=== PATIENT | male | born 1935 | race Caucasian/White ===

== ENCOUNTER 2017-06-20 01:16 | Emergency (ER) | payer MEDICARE, BC ==
[~2017-06-20] VITALS: Ht 172.7 cm; Wt 86.2 kg
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
--- NOTE | 2017-06-20 01:30 | NUR ---
NOSE CLIP APPLIED PER MD ORDER
[2017-06-20] MEDS ORDERED: OXYMETAZOLINE HCL NASAL SPRAY 30 ML BOTTLE NS ONE (02:30)
--- NOTE | 2017-06-20 02:33 | NUR ---
DR. MESA AT BEDSIDE FOR EVAL OF NOSEBLEED.
--- NOTE | 2017-06-20 03:41 | NUR ---
Patient discharged to home in stable condition. Written and verbal after care instructions given. Patient verbalizes understanding of instruction. ambulatory with a steady gait
[2017-06-20 03:42] VITALS: BP 135/60
== END 2017-06-20 03:42 | disposition home or self-care (01) ==
LOC: ER 01:21
DX: R04.0 Epistaxis (principal); E78.00 Pure hypercholesterolemia, unspecified; I10 Essential (primary) hypertension; Z79.82 Long term (current) use of aspirin
CPT/HCPCS: 99283; A4606; Z7610

== ENCOUNTER 2018-06-26 14:08 | Emergency (ER) | payer BC, MEDICARE ==
[~2018-06-26] VITALS: Ht 172.7 cm; Wt 86.2 kg
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
--- NOTE | 2018-06-26 16:45 | NUR ---
Patient discharged to home in stable condition. Written and verbal after care instructions given. Patient verbalizes understanding of instruction. AMBULATORY STEADY GAIT
[2018-06-26 17:04] VITALS: BP 132/68
== END 2018-06-26 17:04 | disposition home or self-care (01) ==
LOC: ER 14:09
DX: S16.1XXA Strain of muscle, fascia and tendon at neck level, initial encounter (principal); I10 Essential (primary) hypertension; E11.9 Type 2 diabetes mellitus without complications; E78.00 Pure hypercholesterolemia, unspecified; Z98.890 Other specified postprocedural states; V49.49XA Driver injured in collision with other motor vehicles in traffic accident, initial encounter; Y93.89 Activity, other specified; Y92.413 State road as the place of occurrence of the external cause; Y99.8 Other external cause status
CPT/HCPCS: 72040-TC; 72074-TC; A4606; Z7610

== ENCOUNTER 2024-12-19 17:20 | Emergency (ER) | payer BC, OTHER ==
[~2024-12-19] VITALS: Ht 170.2 cm; Wt 88.9 kg
[2024-12-19 18:05] LABS: BASOPHILS # (AUTO) 0.1 K/uL (0.0-0.2); BASOPHILS % (AUTO) 1.3 % (0.0-2.0); EOSINOPHILS # (AUTO) 0.2 K/uL (0.0-0.7); EOSINOPHILS % (AUTO) 2.3 % (0.0-6.0); HEMATOCRIT 39 % (39-51); HEMOGLOBIN 13.2 g/dL (13.5-17.5); LYMPHOCYTES # (AUTO) 1.9 K/uL (0.8-4.8); LYMPHOCYTES % (AUTO) 23.5 % (20.0-44.0); MEAN CORPUSCULAR HEMOGLOBIN 28 PG (26.0-33.0); MEAN CORPUSCULAR HGB CONC 34 g/dl (31.0-36.0); MEAN CORPUSCULAR VOLUME 85 fL (80-96); MONOCYTES # (AUTO) 0.5 K/uL (0.1-1.30); MONOCYTES % (AUTO) 5.9 % (2.0-12.0); NEUTROPHILS # (AUTO) 5.3 K/uL (1.8-8.9); PLATELET COUNT (AUTO) 214 K/uL (150-450); RED BLOOD CELL COUNT(AUTO) 4.65 MIL/uL (4.5-6.0); RED CELL DISTRIBUTION WIDTH 14.7 % (11.5-15.0)
[2024-12-19 18:27] LABS: ALANINE AMINOTRANSFERASE 31 U/L (12-78); ALBUMIN 3.4 g/dL (3.4-5.0); ALKALINE PHOSPHATASE 170 U/L (46-116); ASPARTATE AMINOTRANSFERASE 23 U/L (15-37); BILIRUBIN,DIRECT 0.2 mg/dL (0.0-0.2); BILIRUBIN,TOTAL 0.7 mg/dL (0.2-1.0); CALCIUM, SERUM 9.6 mg/dL (8.5-10.1); CARBON DIOXIDE 27 mmol/L (21-32); CHLORIDE 108 mmol/L (98-107); CREATININE 1.4 mg/dL (0.6-1.3); GLUCOSE 104 mg/dL (74-106); NT-PRO BNP 156 pg/mL (0-125); SODIUM SERUM 138 mmol/L (136-145); TOTAL PROTEIN, SERUM 6.9 g/dL (6.4-8.2); UREA NITROGEN, BLOOD 23 mg/dL (7-18)
[2024-12-19 18:47] LABS: APPEARANCE,URINE CLEAR (CLEAR); BILIRUBIN,URINE NEGATIVE (NEGATIVE); BLOOD, URINE 2+ Ery/uL (NEGATIVE); COLOR,URINE YELLOW (YELLOW); KETONES,URINE NEGATIVE (NEGATIVE); LEUKOCYTE ESTERASE ,URINE NEGATIVE (NEGATIVE); NITRITE, URINE NEGATIVE (NEGATIVE); PH,URINE 5.5 (5.0-8.0); PROTEIN,URINE TRACE mg/dl (NEGATIVE); UGLUCOSE NEGATIVE (NEGATIVE); UROBILINOGEN,URINE 0.2 EU/dL (0.2)
[2024-12-19 18:58] LABS: RBC,URINE 21-50 /HPF (0-2)
[2024-12-19 18:59] LABS: ADD URINE CULTURE NO; BACTERIA,URINE None seen /HPF (None Seen); MUCUS,URINE Few /LPF (None Seen); SQUAMOUS EPITHELIAL CELL,UR 0-2 /HPF (None Seen); WBC,URINE 0-2 /HPF (0-3)
[2024-12-19 19:06] LABS: INR 0.98 (0.91-1.10); PARTIAL THROMBOPLASTIN TIME 27.3 SEC (24.3-34.3); PROTHROMBIN TIME 10.4 SECS (9.2-11.1)
[2024-12-19] MEDS ORDERED: CEFTRIAXONE 1 G VIAL ONE (19:56)
[2024-12-19] MEDS: IV NS 0.9% 500 ML BAG IV ONE (20:06)
[2024-12-19] MEDS: CEFTRIAXONE 1 G in IV D5W 50 ML IV ONE (20:08)
[2024-12-19] MEDS ORDERED: CEPH500T PO (20:08)
[2024-12-19 21:14] VITALS: BP 150/78; TEMP 97.8; O2SAT 99
== END 2024-12-19 21:15 | disposition left against medical advice (07) ==
LOC: ER 17:25
DX: S09.90XA Unspecified injury of head, initial encounter (principal); R53.1 Weakness; G20.A1 Parkinson's disease without dyskinesia, without mention of fluctuations; E78.00 Pure hypercholesterolemia, unspecified; I11.9 Hypertensive heart disease without heart failure; E11.22 Type 2 diabetes mellitus with diabetic chronic kidney disease; R31.29 Other microscopic hematuria; Z20.822 Contact with and (suspected) exposure to COVID-19; W01.0XXA Fall on same level from slipping, tripping and stumbling without subsequent striking against object, initial encounter; Y93.89 Activity, other specified; Y92.89 Other specified places as the place of occurrence of the external cause; Y99.8 Other external cause status
CPT/HCPCS: 99285; 72125; 96365; 71045; 87426; 93005; 72170; 70450; 85025; 80048; 80076; 81001; 36415; 84484 ×2; 85730; 83880; L0172; J0696 ×2; J7060 ×2; J7040; 87086-TC